=== PATIENT | male | born 1960 | race Caucasian/White ===

== ENCOUNTER → 2017-09-02 | Day surgery (SDC) | payer OTHER ==
[~2017-09-02] VITALS: Ht 170.2 cm; Wt 72.6 kg
[~2017-09-02] MED LIST: MULTIVITAMINS1 EAC9 PO; VITAMIN D2000 UNI1 PO
--- NOTE | 2017-09-02 12:57 | Operative Report ---
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 The patient was prepped and draped in the usual fashion for sterile intraocular surgery. The eye had been marked at 12 and 3 o'clock in the holding area and then the eye was marked on the table to indicate 8 on the cornea. The eye was stabilized with a Jackson ring and the anterior chamber was entered using a 2.4 mm keratome temporally. A small amount of non-preserved lidocaine was introduced into the anterior chamber to provide anesthesia. The anterior chamber was then deepened with viscoelastic. A temporal paracentesis entrance into the eye was made with a 1 mm MVR blade. The pupil was judged to be too small to safely remove the lens and so a Malyugin ring was placed into the anterior chamber and then positioned to expand the iris in the 4 designated positions. A curvilinear capsulorrhexis was started with a 30-gauge needle bent as a cystotome and finished with a Utrata forceps. The lens was hydrodissected using balanced salt solution through a 26-gauge cannula. The lens was found to be rotatable and was then emulsified using a four-quadrant divide and conquer technique. Residual cortical material was removed using automated irrigation and aspiration. The posterior capsule was polished first with the machine on dominican setting and then with a North squeegee. The capsular bag was re-deepened with viscoelastic. The lens a Restor/Toric model SND1T4 19.5 D toric lens was placed into the capsular bag under direct visualization and rotated so that the markings on the lens corresponded with the previously marked cornea. Once the lens was determined to be adequately placed the Malyugin ring was then carefully disengaged from the iris on 3 of the 4 contact points and then removed from the eye using the injector. The residual viscoelastic was removed using automated irrigation and aspiration. Anterior chamber was reinflated with balanced salt solution. The main wound was sealed shut using balanced salt solution. 1/10 of a cc of cefuroxime solution was placed into the eye through the paracentesis site. Additionally Miostat was placed into the eye to constrict the pupil. The eye was checked and found to be in adequate tone in the paracentesis site was sealed. The lid speculum was removed from the eye. The draping and monitoring equipment was removed from the patient who was then removed from the operating room in stable condition and brought to same-day surgery. Patient tolerated the procedure well and will be seen in the office tomorrow.
== END ==
LOC: STS 02:29
DX: H25.89 Other age-related cataract (principal); H52.202 Unspecified astigmatism, left eye; H52.4 Presbyopia
CPT/HCPCS: J2250